=== PATIENT | female | born 1950 | race Caucasian/White ===

== ENCOUNTER 2018-03-26 14:54 | Inpatient (IN) ==
[2018-03-26] MEDS ORDERED: Gadobutrol PF 2 MMOL/2 ML Vial (for RAD) IV.SIG ONE (14:55)
[2018-03-26] MEDS ORDERED: Sod Chloride 0.9% Inj 1,000 ML IV.SIG ONE ×2 (15:07→16:48)
[2018-03-26] MEDS ORDERED: MethylPREDNISolone Sod Succinate Inj 125 MG/2 ML Vial IV.PUSH ONE (15:08)
--- NOTE | 2018-03-26 15:10 | ED ---
HPI General Chief complaint: Weakness Stated complaint: Weakness Complaint Time Seen by Provider: 03/26/18 14:55 Source: patient, EMS, RN notes reviewed and old records reviewed Mode of arrival: EMS Limitations: no limitations History of Present Illness HPI narrative: 67-year-old female presents to the emergency department via EMS for evaluation of generalized weakness. Patient has history of multiple sclerosis, hypertension, depression. Her neurologist is Dr. Motley. Patient states that she has been unable to get out of her chair that she has been sitting in for 3 days. She comes in via EMS covered in feces. The patient denies any headache. No fevers or chills. No chest pain or shortness of breath. No abdominal pain. No nausea, vomiting, diarrhea. She denies any falls or head injury. No other symptoms or complaints. Moderate severity. Onset (ago): day(s) (3) Radiation: non-radiation Severity: moderate Relieving factors: none Exacerbating factors: none Associated symptoms: Reports denies other symptoms Related Data Home Medications Medication Instructions Recorded Confirmed atorvastatin 20 mg PO DAILY 03/26/18 03/26/18 bupropion HCl 150 mg PO QAM 03/26/18 03/26/18 interferon beta-1a [Avonex] 30 mcg IM QWEEK 03/26/18 03/26/18 lisinopril 10 mg PO DAILY 03/26/18 03/26/18 temazepam 15 mg PO HS PRN 03/26/18 03/26/18 Allergies Allergy/AdvReac Type Severity Reaction Status Date / Time erythromycin base Allergy Severe RASH Unverified 01/13/17 15:26 NICKEL Allergy Mild RASH Uncoded 12/07/07 11:40 Review of Systems ROS: all other systems reviewed are negative PMFSH Medical History Medical History History of hysterectomy (Acute) Multiple sclerosis (Acute) Social History Social History Substance History: No History of Abuse Smoking Status: Current every day smoker Tobacco Type: Cigarettes How Often Do You Have a Drink Containing Alcohol: Never Recent Travel in [place] within the Last 8 Weeks: No Recent Out of Country Travel within the Last 8 Weeks: No Exam Narrative Exam Narrative: GENERAL: Well-nourished, well-developed female patient, afebrile. Patient is covered in feces upon arrival. SKIN: Focused skin assessment warm/dry. HEAD: Normocephalic. Atraumatic. EYES: No scleral icterus. No injection or drainage. NECK: Supple, trachea midline. No JVD or lymphadenopathy. CARDIOVASCULAR: Regular rate and rhythm without murmurs, gallops, or rubs. Bilateral radial and pedal pulses are 2+ RESPIRATORY: Breath sounds equal bilaterally. No accessory muscle use. Lung sounds are clear to auscultation GASTROINTESTINAL: Abdomen soft, non-tender, nondistended. MUSCULOSKELETAL: No cyanosis, or edema. Bilateral upper extremity strength is 5 /5. Bilateral lower extremity strength is 4/5. All extremities are neurovascularly intact. BACK: Nontender without obvious deformity. No CVA tenderness. Course Initial Documented Vital Signs Pulse Rate 121 H 03/26/18 15:22 Respiratory Rate 22 03/26/18 15:22 Blood Pressure 155/86 H 03/26/18 15:22 Pulse Oximetry 97 03/26/18 15:22 Last Documented Vital Signs Temperature 98.7 F 03/26/18 17:13 Pulse Rate 121 H 03/26/18 15:22 Respiratory Rate 22 03/26/18 15:22 Blood Pressure 155/86 H 03/26/18 15:22 Pulse Oximetry 97 03/26/18 15:22 Medical Decision Making MDM Narrative Medical decision making narrative: 67-year-old female presents to the emergency department via EMS for evaluation of generalized weakness. She has been unable to get out of her chair for 3 days and has been urinating and defecating on herself. Patient has history of MS, neurologist is Dr. Motley. IV access is obtained. CBC, CMP, magnesium, CK, troponin, TSH, PTT, PT/INR, UA are ordered and pending. Patient is given normal saline 1 L IV bolus, Solumedrol 125 mg IV. EKG shows SR, HR 98, no acute ST changes. CBC shows hemoconcentration with Hgb of 16.7, HCT of 48.5. CMP shows no acute abnormality. Magnesium is 2.1. CK is 52. Troponin is less than 0.02. TSH is 1.040. PTT is 27.9. Pt/INR is 11.4 /1.1. UA shows 80 or greater ketones, positive nitrate, small leukocyte esterase, 17 WBC, few WBC clumps, many bacteria. Patient is given second liter normal saline IV bolus. Blood cultures x2 are pending. Patient is given Rocephin 1 g IV. I spoke to Dr. Soriano, neurologist sanitation superintendent. He states that this time he would treat UTI with antibiotics. He recommends MRI of the brain with and without contrast and a consult placed to him. Hospitalist is paged for admission. Dr. Caruso accepted admission. Medical Screen Exam Complete: Yes Emergency Medical Condition: Yes Differential Diagnosis Differential Diagnosis: MS exacerbation vs. metabolic derangement vs. dehydration vs. rhabdomyolosis Medical Records Medical records reviewed: Yes I reviewed the patient's medical records. Lab Data Result diagrams: 03/26/18 15:38 03/26/18 15:38 Lab Results 03/26/18 03/26/18 03/26/18 Range/Units 15:38 15:38 15:38 WBC 9.6 (4.0-11.0) th/mm3 RBC 4.96 (4.00-5.30) mil/mm3 Hgb 16.7 H (11.6-15.3) gm/dL Hct 48.5 H (35.0-46.0) % MCV 97.7 (80.0-100.0) fL MCH 33.6 (27.0-34.0) pg MCHC 34.4 (32.0-36.0) % RDW 13.5 (11.6-17.2) % Plt Count 237 (150-450) th/mm3 MPV 9.7 (7.0-11.0) fL Neut % (Auto) 76.4 H (16.0-70.0) % Lymph % (Auto) 14.8 (9.0-44.0) % [place] % (Auto) 6.8 (0.0-8.0) % Eos % (Auto) 1.3 (0.0-4.0) % Baso % (Auto) 0.7 (0.0-2.0) % Neut # (Auto) 7.4 (1.8-7.7) th/mm3 Lymph # (Auto) 1.4 (1.0-4.8) th/mm3 [place] # (Auto) 0.7 (0.0-0.9) th/mm3 Eos # (Auto) 0.1 (0.0-0.4) th/mm3 Baso # (Auto) 0.1 (0.0-0.2) th/mm3 WBC Differential . Differential Comment Auto diff final PT 11.4 (9.8-11.6) sec INR 1.1 Ratio APTT 27.9 (24.3-30.1) sec Sodium 139 (136-145) meq/L Potassium 3.6 (3.5-5.1) meq/L Chloride 103 (98-107) meq/L Carbon Dioxide 25.9 (21.0-32.0) meq/L Anion Gap 10 (5-15) meq/L BUN 16 (7-18) mg/dL Creatinine 0.80 (0.50-1.00) mg/dL Estimated GFR 72 L (>89) mL/min Random Glucose 93 (74-106) mg/dL Calcium 9.2 (8.5-10.1) mg/dL Magnesium 2.1 (1.5-2.5) mg/dL Total Bilirubin 0.5 (0.2-1.0) mg/dL AST 13 L (15-37) U/L ALT 17 (10-53) U/L Alkaline Phosphatase 65 (45-117) U/L Total Creatine Kinase 52 (26-192) U/L Troponin I Less than 0.02 L (0.02-0.05) ng/mL Total Protein 7.4 (6.4-8.2) g/dL Albumin 3.5 (3.4-5.0) g/dL TSH 1.040 (0.358-3.740) uIU/mL Urine Color (Yellw/Straw) Urine Clarity (Clear) Urine pH (5.0-8.5) Ur Specific [place] (1.002-1.035) Urine Protein (Neg-Trace) mg/dL Urine Glucose (UA) (Negative) mg/dL Urine Ketones (Negative) mg/dL Urine Occult Blood (Negative) Urine Nitrate (Negative) Urine Bilirubin (Negative) Urine Ictotest (Negative) Urine Urobilinogen (Less than 2) mg/dL Ur Leukocyte Esterase (Negative) Urine RBC (0-3) /hpf Urine WBC (0-5) /hpf Urine WBC Clumps (None) Urine Bacteria (None) /hpf Urine Mucus (Occasional) /lpf Micro UA Comment Ur Microscopic Review Urine Culture Comments 03/26/18 Range/Units 15:50 WBC (4.0-11.0) th/mm3 RBC (4.00-5.30) mil/mm3 Hgb (11.6-15.3) gm/dL Hct (35.0-46.0) % MCV (80.0-100.0) fL MCH (27.0-34.0) pg MCHC (32.0-36.0) % RDW (11.6-17.2) % Plt Count (150-450) th/mm3 MPV (7.0-11.0) fL Neut % (Auto) (16.0-70.0) % Lymph % (Auto) (9.0-44.0) % [place] % (Auto) (0.0-8.0) % Eos % (Auto) (0.0-4.0) % Baso % (Auto) (0.0-2.0) % Neut # (Auto) (1.8-7.7) th/mm3 Lymph # (Auto) (1.0-4.8) th/mm3 [place] # (Auto) (0.0-0.9) th/mm3 Eos # (Auto) (0.0-0.4) th/mm3 Baso # (Auto) (0.0-0.2) th/mm3 WBC Differential Differential Comment PT (9.8-11.6) sec INR Ratio APTT (24.3-30.1) sec Sodium (136-145) meq/L Potassium (3.5-5.1) meq/L Chloride (98-107) meq/L Carbon Dioxide (21.0-32.0) meq/L Anion Gap (5-15) meq/L BUN (7-18) mg/dL Creatinine (0.50-1.00) mg/dL Estimated GFR (>89) mL/min Random Glucose (74-106) mg/dL Calcium (8.5-10.1) mg/dL Magnesium (1.5-2.5) mg/dL Total Bilirubin (0.2-1.0) mg/dL AST (15-37) U/L ALT (10-53) U/L Alkaline Phosphatase (45-117) U/L Total Creatine Kinase (26-192) U/L Troponin I (0.02-0.05) ng/mL Total Protein (6.4-8.2) g/dL Albumin (3.4-5.0) g/dL TSH (0.358-3.740) uIU/mL Urine Color Yellow (Yellw/Straw) Urine Clarity Hazy H (Clear) Urine pH 5.0 (5.0-8.5) Ur Specific [place] 1.024 (1.002-1.035) Urine Protein Negative (Neg-Trace) mg/dL Urine Glucose (UA) Negative (Negative) mg/dL Urine Ketones 80 or greater H (Negative) mg/dL Urine Occult Blood Small H (Negative) Urine Nitrate Positive H (Negative) Urine Bilirubin Negative (Negative) Urine Ictotest Negative (Negative) Urine Urobilinogen Less than 2 (Less than 2) mg/dL Ur Leukocyte Esterase Small H (Negative) Urine RBC 3 (0-3) /hpf Urine WBC 17 H (0-5) /hpf Urine WBC Clumps Few H (None) Urine Bacteria Many H (None) /hpf Urine Mucus Few H (Occasional) /lpf Micro UA Comment Cath-culture ind Ur Microscopic Review Not Reportable Urine Culture Comments Cath-cult indicated Discharge Plan Discharge Disposition Patient Disposition: 30 Still Patient Discharge Details Diagnosis: Generalized weakness, Acute UTI, Multiple sclerosis Physicians Team ED Provider: Joshua Bazzi ED Midlevel Provider: Lili Turner Primary Care Provider: Bismark Ronquillo V Other Providers: Richard Soriano Rxs /Orders / Referrals /Forms Prescriptions: No Action atorvastatin 20 mg Tablet 20 mg PO DAILY RF: 0 temazepam 15 mg Capsule 15 mg PO HS PRN (Reason: Insomnia) RF: 0 lisinopril 10 mg Tablet 10 mg PO DAILY RF: 0 bupropion HCl 150 mg Tablet Extended Release 24 Hr 150 mg PO QAM RF: 0 interferon beta-1a [Avonex] 30 mcg/0.5 mL Pen Injector Kit 30 mcg IM QWEEK RF: 0 Status ED Status: With Doctor
[2018-03-26 16:04] LABS: Baso # (Auto) 0.1 th/mm3 (0.0-0.2); Baso % (Auto) 0.7 % (0.0-2.0); Eos # (Auto) 0.1 th/mm3 (0.0-0.4); Eos % (Auto) 1.3 % (0.0-4.0); Hematocrit 48.5 % (35.0-46.0); Hemoglobin 16.7 gm/dL (11.6-15.3); Lymph # (Auto) 1.4 th/mm3 (1.0-4.8); Lymph % (Auto) 14.8 % (9.0-44.0); Mean Corpuscular HGB Conc 34.4 % (32.0-36.0); Mean Corpuscular Hemoglobin 33.6 pg (27.0-34.0); Mean Corpuscular Volume 97.7 fL (80.0-100.0); Mean Platelet Volume 9.7 fL (7.0-11.0); Mono # (Auto) 0.7 th/mm3 (0.0-0.9); Mono % (Auto) 6.8 % (0.0-8.0); Neut # (Auto) 7.4 th/mm3 (1.8-7.7); Neut % (Auto) 76.4 % (16.0-70.0); Platelet Count 237 th/mm3 (150-450); Red Blood Count 4.96 mil/mm3 (4.00-5.30); Red Cell Distribution Width 13.5 % (11.6-17.2); White Blood Count 9.6 th/mm3 (4.0-11.0)
[2018-03-26 16:22] LABS: Activated Partial Thrombo Time 27.9 sec (24.3-30.1); INR 1.1 Ratio; Prothrombin Time 11.4 sec (9.8-11.6)
[2018-03-26 16:23] LABS: Bacteria,Urine Many /hpf; Clarity,Urine Hazy (Clear); Color,Urine Yellow (Yellw/Straw); Glucose,Urine (UA) Negative (Negative); Leukocyte Esterase,Urine Small (Negative); Mucus,Urine Few /lpf (Occasional); Nitrite,Urine Positive (Negative); Specific Gravity,Urine 1.024 (1.002-1.035)
[2018-03-26 16:33] LABS: Bilirubin,Urine Negative (Negative); Ictotest,Urine Negative (Negative)
[2018-03-26 16:37] LABS: Alanine Aminotransferase 17 U/L (10-53); Albumin 3.5 g/dL (3.4-5.0); Anion Gap 10 meq/L (5-15); Aspartate Aminotransferase 13 U/L (15-37); Blood Urea Nitrogen 16 mg/dL (7-18); Calcium 9.2 mg/dL (8.5-10.1); Carbon Dioxide 25.9 meq/L (21.0-32.0); Chloride 103 meq/L (98-107); Glomerular Filtration Rate 72 mL/min (>89); Glucose,Random 93 mg/dL (74-106); Magnesium 2.1 mg/dL (1.5-2.5); Potassium 3.6 meq/L (3.5-5.1); Sodium 139 meq/L (136-145)
[2018-03-26 16:47] LABS: Alkaline Phosphatase 65 U/L (45-117); Total Protein 7.4 g/dL (6.4-8.2)
[2018-03-26 17:28] LABS: Creatine Kinase 52 U/L (26-192)
--- NOTE | 2018-03-26 18:38 | MR ---
EXAM DATE: 03/26/2018 6:25 PM EDT AGE/SEX: 67 years / Female INDICATIONS: . Generalized weakness. CLINICAL DATA: This is the patient's initial encounter. Patient reports that signs and symptoms have been present for 1 day and indicates a pain score of 0/10. MEDICAL/SURGICAL HISTORY: Multiple sclerosis. Hysterectomy. COMPARISON: [facility] [place] BRAIN W & W/O CONTRAST, 05/26/2012. . TECHNIQUE: Multiplanar, multisequence examination of the brain was performed without and with 9 ml Ga davist (gadobutrol) contrast as a single exam dose. FINDINGS: Cerebrum: Ventricles remain prominent and out of proportion to the degree of cortical atrophy. Sever e periventricular areas of increased T2 FLAIR signal intensity, some of which are oriented 90 degrees to the axis of the ventricles could represent the patient's reported history of multiple sclerosis. Findings are stable from the 2012 exam, however. No areas of abnormal enhancement to suggest an acute demyelinating process. No evidence of midline shift, mass lesion, hemorrhage or acute infarction. No extraaxial fluid collections are seen. The pituitary gland and suprasellar cistern are normal in configuration. White Matter: Severe, but stable periventricular white matter changes as above. Posterior Fossa: The cerebellum and brainstem are intact. The 4th ventricle is midline. The cerebel lopontine angle is unremarkable. The cerebellar tonsils are normal in position. Diffusion Imaging: No focal areas of restricted diffusion are seen. No evidence of acute infarction . Extracranial: The visualized portions of the orbits and paranasal sinuses are unremarkable. Post Contrast: No abnormal areas of parenchymal or dural enhancement. No evidence of blood-brain ba rrier breakdown. CONCLUSION: 1. 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 Findings are st able from the 2012 exam, however. 2. No active demyelinating plaque. 3. Stable prominence of the ventricular system. Again, this could represent some central atrophy alt juan, in the appropriate clinical setting, findings could represent normal pressure hydrocephalus. Electronically signed by: Tolu Slade MD 03/26/2018 6:37 PM EDT
[2018-03-26] MEDS ORDERED: Bisacodyl 10 MG Supp RECTAL PRN (18:59)
[2018-03-26] MEDS ORDERED: Acetaminophen 325 MG Tablet PO PRN (18:59)
--- NOTE | 2018-03-26 19:22 | P.HPIM ---
History of Present Illness Primary Care Physician: Bismark Ronquillo MD Chief Complaint: Feeling weak. History of Present Illness: 67-year-old white female with a history of multiple sclerosis reports that she was essentially chair and bedbound for the past 3 days. She states during the past 3 days she has had increased weakness to the point where she was unable to get up from her chair to ambulate. She was found by her home health care nurse today sitting in her feces and sent to the emergency room for further evaluation. She states that she was stubborn and should have called for help sooner. She reports her baseline is able to be able to walk with a walker and can be independent in transfers from bed and chair. She reports her left lower leg seems to be weaker than the right lower leg during the past 3 days. She denies any headaches, visual changes nor any difficulty with speech or swallow. She has not had any chest pain or shortness of breath. She has not had any dysuria or frequency or urgency. She has not had any fevers or chills. She lives alone and due to the fact she was chair and bedbound, she has not been eating and drinking during the past 3 days. Review of Systems All other systems reviewed negative except as stated in HPI PMFSH - History History Provided By: Patient, Private Wealth Advisor / EMT - Medical History Medical History: Medical History (Last Updated 03/26/18 @ 19:10 by Graciela Caruso MD) Depression HTN (hypertension) Multiple sclerosis - Surgical History Surgical History: Surgical History (Last Reviewed 03/26/18 @ 19:09 by Graciela Caruso MD) History of hysterectomy - Family History Family History: Family History (Last Updated 03/26/18 @ 19:09 by Graciela Caruso MD) Mother Family history of hypertension - Social History I have reviewed the patient's Social History: Yes - Tobacco History Tobacco Use In Past 30 Days: Yes Smoking Status: Current every day smoker Tobacco Type: Cigarettes - Alcohol History How Often Do You Have a Drink Containing Alcohol: Never - Substance Use History Substance History: No History of Abuse - Travel History Recent Travel in the [facility] Within the Last 8 Weeks: No Recent Travel Out of the Country Within the Last 8 Weeks: No - Immunization History Tetanus Immunization: <5 Years Medications and Allergies Active Medications: Active Medications Sodium Chloride (Ns Flush) 2 ml IV.FLUSH PRN PRN PRN Reason: FLUSH AFTER USING IV ACCESS Allergies Allergy/AdvReac Type Severity Reaction Status Date / Time erythromycin base Allergy Severe RASH Unverified 01/13/17 15:26 NICKEL Allergy Mild RASH Uncoded 12/07/07 11:40 Home Medications Medication Instructions Recorded Confirmed Type atorvastatin 20 mg PO DAILY 03/26/18 03/26/18 History bupropion HCl 150 mg PO QAM 03/26/18 03/26/18 History interferon beta-1a [Avonex] 30 mcg IM QWEEK 03/26/18 03/26/18 History lisinopril 10 mg PO DAILY 03/26/18 03/26/18 History temazepam 15 mg PO HS PRN 03/26/18 03/26/18 History Exam Vital signs: Vital Signs 03/26/18 15:22 03/26/18 17:13 Temperature 98.7 F Pulse Rate 119 H Respiratory Rate 22 Blood Pressure 155/86 H Pulse Oximetry 97 Intake & Output 03/26/18 03/26/18 03/27/18 06:59 18:59 06:59 Intake Total 1000 / 1000 Balance 1000 / 1000 Weight 90.718 kg Intake: IV 1000 / 1000 NS Inj 1,000 ML @ Wide Open IV. 1000 / 1000 SIG BOLUS ONE Rx#:[id number] Narrative: GENERAL: Well-nourished well-developed white female no acute distress SKIN: Warm and dry. HEAD: Atraumatic. Normocephalic. EYES: Pupils equal and round. No scleral icterus. No injection or drainage. ENT: No nasal bleeding or discharge. Mucous membranes pink and moist. NECK: Trachea midline. No JVD. CARDIOVASCULAR: Regular rate and rhythm. RESPIRATORY: No accessory muscle use. Clear to auscultation. Breath sounds equal bilaterally. GASTROINTESTINAL: Abdomen soft, non-tender, nondistended. Hepatic and splenic margins not palpable. Normoactive bowel sounds MUSCULOSKELETAL: Extremities without clubbing, cyanosis, or edema. NEUROLOGICAL: Awake and alert to person place time situation. Cranial nerves intact. Bilateral upper extremity strength 5 out of 5, bilateral lower extremity 4 out of 5 motor strength. Normal speech. PSYCHIATRIC: Appropriate mood and affect; insight and judgment normal. Results - Labs CBC & Chem 7: 03/26/18 15:38 03/26/18 15:38 Labs: Short CBC 03/26/18 Range/Units 15:38 WBC 9.6 (4.0-11.0) th/mm3 Hgb 16.7 H (11.6-15.3) gm/dL Hct 48.5 H (35.0-46.0) % Plt Count 237 (150-450) th/mm3 BMP 03/26/18 15:38 Sodium 139 Potassium 3.6 Chloride 103 Carbon Dioxide 25.9 BUN 16 Creatinine 0.80 Calcium 9.2 Cardiac Enzymes 03/26/18 Range/Units 15:38 Total Creatine Kinase 52 (26-192) U/L Troponin I Less than 0.02 L (0.02-0.05) ng/mL Liver Function 03/26/18 Range/Units 15:38 Total Bilirubin 0.5 (0.2-1.0) mg/dL AST 13 L (15-37) U/L ALT 17 (10-53) U/L Alkaline Phosphatase 65 (45-117) U/L Albumin 3.5 (3.4-5.0) g/dL Urine 03/26/18 Range/Units 15:50 Urine Color Yellow (Yellw/Straw) Urine Clarity Hazy H (Clear) Urine pH 5.0 (5.0-8.5) Ur Specific [place] 1.024 (1.002-1.035) Urine Protein Negative (Neg-Trace) mg/dL Urine Glucose (UA) Negative (Negative) mg/dL - Imaging Impressions Head MRI 03/26/18 17:26 CONCLUSION: 1. 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 Findings are stable from the 2012 exam, however. 2. No active demyelinating plaque. 3. Stable prominence of the ventricular system. Again, this could represent some central atrophy although, in the appropriate clinical setting, findings could represent normal pressure hydrocephalus. Caprini VTE Risk Assessment Caprini VTE Risk Assessment: Moderate/High Risk (score >= 2) Caprini Risk Assessment Model: Point Value = 1 Point Value = 2 Point Value = 3 Point Value = 5 Age 41-60 Minor surgery BMI > 25 kg/m2 Swollen legs Varicose veins or History of unexplained or recurrent spontaneous Oral contraceptives or hormone replacement Sepsis (< 1 month) Serious lung disease, including pneumonia (< 1 month) Abnormal pulmonary function Acute myocardial infarction Congestive heart failure (< 1 month) History of inflammatory bowel disease Medical patient at bed rest Age 61-74 Arthroscopic surgery Major open surgery (> 45 min) Laparoscopic surgery (> 45 min) Malignancy Confined to bed (> 72 hours) Immobilizing plaster cast Central venous access Age >= 75 History of VTE Family history of VTE Factor V Leiden Prothrombin [id number] Lupus anticoagulant Anticardiolipin antibodies Elevated serum homocysteine Heparin-induced thrombocytopenia Other congenital or acquired thrombophilia Stroke (< 1 month) Elective arthroplasty Hip, pelvis, or leg fracture Acute spinal cord injury (< 1 month) Prophylaxis Regimen: Total Risk Factor Score Risk Level Prophylaxis Regimen 0-1 Low Early ambulation 2 Moderate Order ONE of the following: *Sequential Compression Device (SCD) *Heparin 5000 units SQ BID 3-4 Higher Order ONE of the following medications: *Heparin 5000 units SQ TID *Enoxaparin/Lovenox 40 mg SQ daily (WT < 150 kg, CrCl > 30 mL/min) *Enoxaparin/Lovenox 30 mg SQ daily (WT < 150 kg, CrCl > 10-29 mL/min) *Enoxaparin/Lovenox 30 mg SQ BID (WT < 150 kg, CrCl > 30 mL/min) AND/OR *Sequential Compression Device (SCD) 5 or more Highest Order ONE of the following medications: *Heparin 5000 units SQ TID (Preferred with Epidurals) *Enoxaparin/Lovenox 40 mg SQ daily (WT < 150 kg, CrCl > 30 mL/min) *Enoxaparin/Lovenox 30 mg SQ daily (WT < 150 kg, CrCl > 10-29 mL/min) *Enoxaparin/Lovenox 30 mg SQ BID (WT < 150 kg, CrCl > 30 mL/min) AND *Sequential Compression Device (SCD) Assessment and Plan - Plan 67-year-old white female with a history of multiple sclerosis presents emergency room with 3-day history of generalized weakness leading to difficulty with transfers and ambulation for the past 3 days 1. Lower extremity weakness with 3-day history of difficulty with transfers and ambulating -this may be due to her urinary tract infection however will consult with neurology for further recommendations. Patient states that this does not feel like her previous multiple sclerosis exacerbations MRI of the brain ordered per neurologist recommendations and results reviewed. 2. Hypertensionresume home lisinopril. 3. Depressionresume home bupropion 4. Urinary tract infectionstart Rocephin. Follow-up with final urine cultures. 5. DVT prophylaxisLovenox.
[2018-03-26] MEDS: Enoxaparin Inj 40 MG/0.4 ML Syringe SQ SCH (21:49)
[2018-03-27 05:08] LABS: Baso % (Auto) 0.3 % (0.0-2.0); Hematocrit 41.1 % (35.0-46.0); Hemoglobin 13.9 gm/dL (11.6-15.3); Lymph # (Auto) 0.5 th/mm3 (1.0-4.8); Lymph % (Auto) 7.4 % (9.0-44.0); Mean Corpuscular HGB Conc 33.8 % (32.0-36.0); Mean Corpuscular Hemoglobin 33.1 pg (27.0-34.0); Mean Corpuscular Volume 97.9 fL (80.0-100.0); Mean Platelet Volume 10.3 fL (7.0-11.0); Mono # (Auto) 0.2 th/mm3 (0.0-0.9); Mono % (Auto) 2.1 % (0.0-8.0); Neut # (Auto) 6.5 th/mm3 (1.8-7.7); Neut % (Auto) 90.2 % (16.0-70.0); Platelet Count 206 th/mm3 (150-450); Red Cell Distribution Width 13.3 % (11.6-17.2); White Blood Count 7.2 th/mm3 (4.0-11.0)
[2018-03-27 05:39] LABS: Calcium 8.3 mg/dL (8.5-10.1); Carbon Dioxide 23.5 meq/L (21.0-32.0); Potassium 3.4 meq/L (3.5-5.1)
[2018-03-27 09:03] LABS: Phosphorus 2.1 mg/dL (2.5-4.9)
--- NOTE | 2018-03-27 09:04 | P.PN ---
Subjective Interval history: Follow up on patient with MS, weakness, UTI. Patient seen and examined. She says she feels okay. She denies any fever or chills. She denies any chest pain or dyspnea. She denies any N/V or abdominal pain. She is asking if she can eat breakfast. She performs her own ADLs at the house. She has friends that bring her food to microwave. Physical Exam Vital signs: Vital Signs 03/26/18 15:22 03/26/18 17:13 03/26/18 19:00 Temperature 98.7 F Pulse Rate 119 H 95 H Respiratory Rate 22 16 Blood Pressure 155/86 H 142/82 H Pulse Oximetry 97 97 03/27/18 00:00 03/27/18 03:46 03/27/18 08:00 Temperature 98.8 F 98.8 F 98.5 F Pulse Rate 101 H 100 H 96 H Respiratory Rate 14 14 16 Blood Pressure 129/71 119/63 132/69 Pulse Oximetry 94 L 94 L 93 L Intake & Output 03/26/18 03/27/18 03/27/18 18:59 06:59 18:59 Intake Total 1000 / 1000 1100 / 1100 Balance 1000 / 1000 1100 / 1100 Weight 90.718 kg Intake: IV 1000 / 1000 1100 / 1100 NS Inj 1,000 ML @ Wide Open IV. 1000 / 1000 1000 / 1000 SIG BOLUS ONE Rx#:[id number] Rocephin Inj 1,000 MG In NS Inj 100 / 100 100 ML @ 200 mls/hr IV.SIG ONCE ONE Rx#:[id number] Other: # Voids 1 Narrative: GENERAL: Well-nourished well-developed white female no acute distress. Awake and alert. SKIN: Warm and dry. HEENT: Atraumatic. Normocephalic. Pupils equal and round. No scleral icterus. No injection or drainage. Lazy left eye. No nasal bleeding or discharge. Mucous membranes pink and moist. NECK: Trachea midline. No JVD. CARDIOVASCULAR: Regular rate and rhythm. RESPIRATORY: No accessory muscle use. Clear to auscultation. Breath sounds equal bilaterally. GASTROINTESTINAL: Abdomen soft, non-tender, nondistended. Normoactive bowel sounds. MUSCULOSKELETAL: Extremities without clubbing, cyanosis, or edema. Bilateral calves supple but tender to palpation. ?Right calf slightly larger than left. NEUROLOGICAL: Awake and alert. Cranial nerves II-XII intact. Able to move all extremities spontaneously. Normal speech. PSYCHIATRIC: Appropriate mood and affect; insight and judgment normal. Results - Labs CBC & Chem 7: 03/27/18 03:58 03/27/18 03:58 Laboratory Results - last 24 hr 03/26/18 03/26/18 03/26/18 15:38 15:38 15:38 WBC 9.6 RBC 4.96 Hgb 16.7 H Hct 48.5 H MCV 97.7 MCH 33.6 MCHC 34.4 RDW 13.5 Plt Count 237 MPV 9.7 Neut % (Auto) 76.4 H Lymph % (Auto) 14.8 [place] % (Auto) 6.8 Eos % (Auto) 1.3 Baso % (Auto) 0.7 Neut # (Auto) 7.4 Lymph # (Auto) 1.4 [place] # (Auto) 0.7 Eos # (Auto) 0.1 Baso # (Auto) 0.1 WBC Differential . Differential Comment Auto diff final PT 11.4 INR 1.1 APTT 27.9 Sodium 139 Potassium 3.6 Chloride 103 Carbon Dioxide 25.9 Anion Gap 10 BUN 16 Creatinine 0.80 Estimated GFR 72 L Random Glucose 93 Calcium 9.2 Phosphorus Magnesium 2.1 Total Bilirubin 0.5 AST 13 L ALT 17 Alkaline Phosphatase 65 Total Creatine Kinase 52 Troponin I Less than 0.02 L Total Protein 7.4 Albumin 3.5 TSH 1.040 Urine Color Urine Clarity Urine pH Ur Specific [place] Urine Protein Urine Glucose (UA) Urine Ketones Urine Occult Blood Urine Nitrate Urine Bilirubin Urine Ictotest Urine Urobilinogen Ur Leukocyte Esterase Urine RBC Urine WBC Urine WBC Clumps Urine Bacteria Urine Mucus Micro UA Comment Ur Microscopic Review Urine Culture Comments 03/26/18 03/27/18 03/27/18 15:50 03:58 03:58 WBC 7.2 RBC 4.20 Hgb 13.9 D Hct 41.1 MCV 97.9 MCH 33.1 MCHC 33.8 RDW 13.3 Plt Count 206 MPV 10.3 Neut % (Auto) 90.2 H Lymph % (Auto) 7.4 L [place] % (Auto) 2.1 Eos % (Auto) 0.0 Baso % (Auto) 0.3 Neut # (Auto) 6.5 Lymph # (Auto) 0.5 L [place] # (Auto) 0.2 Eos # (Auto) 0.0 Baso # (Auto) 0.0 WBC Differential . Differential Comment Auto diff final PT INR APTT Sodium 142 Potassium 3.4 L Chloride 109 H Carbon Dioxide 23.5 Anion Gap 10 BUN 14 Creatinine 0.82 Estimated GFR 70 L Random Glucose 166 H Calcium 8.3 L D Phosphorus Magnesium Total Bilirubin AST ALT Alkaline Phosphatase Total Creatine Kinase Troponin I Total Protein Albumin TSH Urine Color Yellow Urine Clarity Hazy H Urine pH 5.0 Ur Specific [place] 1.024 Urine Protein Negative Urine Glucose (UA) Negative Urine Ketones 80 or greater H Urine Occult Blood Small H Urine Nitrate Positive H Urine Bilirubin Negative Urine Ictotest Negative Urine Urobilinogen Less than 2 Ur Leukocyte Esterase Small H Urine RBC 3 Urine WBC 17 H Urine WBC Clumps Few H Urine Bacteria Many H Urine Mucus Few H Micro UA Comment Cath-culture ind Ur Microscopic Review Not Reportable Urine Culture Comments Cath-cult indicated 03/27/18 03:58 WBC RBC Hgb Hct MCV MCH MCHC RDW Plt Count MPV Neut % (Auto) Lymph % (Auto) [place] % (Auto) Eos % (Auto) Baso % (Auto) Neut # (Auto) Lymph # (Auto) [place] # (Auto) Eos # (Auto) Baso # (Auto) WBC Differential Differential Comment PT INR APTT Sodium Potassium Chloride Carbon Dioxide Anion Gap BUN Creatinine Estimated GFR Random Glucose Calcium Phosphorus 2.1 L Magnesium Total Bilirubin AST ALT Alkaline Phosphatase Total Creatine Kinase Troponin I Total Protein Albumin TSH Urine Color Urine Clarity Urine pH Ur Specific [place] Urine Protein Urine Glucose (UA) Urine Ketones Urine Occult Blood Urine Nitrate Urine Bilirubin Urine Ictotest Urine Urobilinogen Ur Leukocyte Esterase Urine RBC Urine WBC Urine WBC Clumps Urine Bacteria Urine Mucus Micro UA Comment Ur Microscopic Review Urine Culture Comments - Imaging Impressions Head MRI 03/26/18 17:26 CONCLUSION: 1. 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 Findings are stable from the 2012 exam, however. 2. No active demyelinating plaque. 3. Stable prominence of the ventricular system. Again, this could represent some central atrophy although, in the appropriate clinical setting, findings could represent normal pressure hydrocephalus. Assessment and Plan - Plan 67-year-old white female with a history of multiple sclerosis presents emergency room with 3-day history of generalized weakness leading to difficulty with transfers and ambulation for the past 3 days Lower extremity weakness with 3-day history of difficulty with transfers and ambulating -this may be due to her urinary tract infection ?MS exacerbation MRI of the brain ordered per neurologist recommendations and results reviewed. BCX with no growth x 1 day -Neurology consulted, appreciate assistance -continue with PT/OT - recommending rehab, patient unable to stand. She lives alone. -CM consulted to assist with discharge planning -fall precautions Urinary tract infection started Rocephin, continue -Follow-up with final urine cultures. Hypertension -continue on home lisinopril. -continue to monitor BP Depression -continue on home bupropion Bilateral calf tenderness -obtain bilateral LE doppler studies, r/o DVT Hypokalemia K 3.4 -po repletion ordered -repeat BMP in am to monitor response Hyperglycemia BS 166 -obtain HgbA1c Hypophosphatemia phos 2.1 -po repletion ordered DVT prophylaxisLovenox. Code Status: Full Discussed Condition With: patient, nursing staff, Dr. Hewitt Discharge Planning: Not ready for discharge
[2018-03-27] MEDS: buPROPion 150 MG 12 HR Tablet PO SCH (10:19)
[2018-03-27] MEDS: Lisinopril 10 MG Tablet PO SCH (10:20)
[2018-03-27] MEDS ORDERED: Gadobutrol PF 10 MMOL/10 ML Vial (for RAD) IV.SIG ONE (13:28)
[2018-03-27 13:53] LABS: Hemoglobin A1c 5.5 % (4.3-6.0)
[2018-03-27] MEDS ORDERED: MethylPREDNISolone Sod Suc Inj 1,000 MG in Dextrose 5% in Water Inj 100 ML IV.SIG ONE ×2 (14:00)
--- NOTE | 2018-03-27 14:21 | MR ---
EXAM DATE: 03/27/2018 2:05 PM EDT AGE/SEX: 67 years / Female INDICATIONS: Mulitple sclerosis. CLINICAL DATA: This is the patient's initial encounter. Patient reports that signs and symptoms have been present for 2 days and indicates a pain score of 0/10. MEDICAL/SURGICAL HISTORY: Multiple sclerosis. Hysterectomy. COMPARISON: [facility] [place], MR THORACIC SPINE W & W/O CON, 03/27/2018. [facility] [place], MRI CERVICAL SPINE W & W/O CON TRAST, 05/26/2012. . TECHNIQUE: Multiplanar, multisequence MRI examination of the cervical spine was performed without an d with 9CC ml Gadavist (gadobutrol) contrast as a single exam dose. FINDINGS: There is grade I anterolisthesis of C3 in relation to C4. Cervical spondylosis is noted at C3-4, C4-5 , C6-7 and C7-T1. Anterior cervical fusion hardware is noted at C5-C7. There is focal right-sided T2 signal hyperintensity within the cervical cord at the C1-2 level and focal left-sided T2 signal hyper intensity within the cervical cord at the C4 level raising possibility of demyelinating plaques. No a bnormal enhancement is noted. Chronic compression deformities are noted involving T1, T2 and T3. C2-C3: The thecal sac has a normal configuration. There is no evidence of disc herniation or spina l canal stenosis. The neural foramina are patent bilaterally. C3-C4: Mild spinal stenosis and moderate bilateral foraminal narrowing is noted secondary to diffuse disc bulge, anterolisthesis, uncovertebral joint spurring and facet joint hypertrophy bilaterally. C4-C5: There is diffuse asymmetric disc bulge to the left which results in moderate left neuroforami nal narrowing but no spinal stenosis. The right neuroforamen is mild narrowing. Facet joint hypertrop hy is noted bilaterally. C5-C6: The thecal sac has a normal configuration. There is no evidence of disc herniation or spinal canal stenosis. The neural foramina are patent bilaterally. C6-C7: Mild diffuse disc osteophyte complex, uncovertebral joint spurring and facet joint hypertroph y are noted resulting in moderate bilateral foraminal narrowing. No spinal stenosis is noted. C7-T1: No epidural impressions seen. CONCLUSION: 1. Focal right-sided T2 signal hyperintensity within the cervical cord at the C1-2 level and focal l eft-sided T2 signal hyperintensity within the cervical cord at the C4 level raising possibility of de myelinating plaques. No abnormal enhancement is noted. 2. Mild spinal stenosis and moderate bilateral foraminal narrowing at C3-4. 3. Moderate bilateral foraminal narrowing at C6-7. 4. Moderate left neuroforaminal narrowing and mild right neuroforaminal narrowing at C4-5. 5. Grade I anterolisthesis of C3 in relation to C4. Electronically signed by: Luca Carlos MD 03/27/2018 2:19 PM EDT
--- NOTE | 2018-03-27 14:32 | MR ---
EXAM DATE: 03/27/2018 2:23 PM EDT AGE/SEX: 67 years / Female INDICATIONS: Mulitple sclerosis. CLINICAL DATA: This is the patient's initial encounter. Patient reports that signs and symptoms have been present for 1 day and indicates a pain score of 0/10. MEDICAL/SURGICAL HISTORY: Multiple sclerosis. Hysterectomy. COMPARISON: [facility] [place], MR CERVICAL SPINE W & W/O CON, 03/27/2018. [facility] [place], MRI CERVICAL SPINE W & W/O CON TRAST, 05/26/2012. . TECHNIQUE: Multiplanar, multisequence MRI of the thoracic spine was performed without and with 9cc m l Gadavist (gadobutrol) contrast as a single exam dose. FINDINGS: Vertebrae: Mild chronic compression deformities are noted involving T1, T2 and T3. No acute compress ion fracture is noted. Alignment: Normal. Cord: There is subtle T2 signal hyperintensity within the left side of the thoracic cord at the T1 l evel. This may represent demyelinating plaque. No abnormal enhancement is noted. Post Contrast: No abnormal areas of enhancement are seen in the cord, dural or paraspinal regions. T1-T2: The thecal sac has a normal diameter. No evidence of disc bulge or protrusion. T2-T3: The thecal sac has a normal diameter. No evidence of disc bulge or protrusion. T3-T4: The thecal sac has a normal diameter. No evidence of disc bulge or protrusion. T4-T5: The thecal sac has a normal diameter. No evidence of disc bulge or protrusion. T5-T6: The thecal sac has a normal diameter. No evidence of disc bulge or protrusion. T6-T7: The thecal sac has a normal diameter. No evidence of disc bulge or protrusion. T7-T8: The thecal sac has a normal diameter. No evidence of disc bulge or protrusion. T8-T9: The thecal sac has a normal diameter. No evidence of disc bulge or protrusion. T9-T10: The thecal sac has a normal diameter. No evidence of disc bulge or protrusion. T10-T11: Minimal diffuse asymmetric disc osteophyte complex to the left is noted resulting in slight effacement of the left lateral recess but no spinal stenosis and mild left neuroforaminal narrowing i s noted. The right neuroforamen is patent T11-T12: Facet joint hypertrophy is noted on the left resulting in effacement of the left posterior l ateral thecal sac. No spinal stenosis or neuroforaminal narrowing is noted. T12-L1: The thecal sac has a normal diameter. No evidence of disc bulge or protrusion. CONCLUSION: 1. Subtle T2 signal hyperintensity within the left side of the thoracic cord at the T1 level. This m ay represent demyelinating plaque. No abnormal enhancement is noted. 2. Mild left neuroforaminal narrowing and effacement of the left lateral recess at T10-11. 3. Left-sided facet joint hypertrophy resulting in effacement of the left posterior lateral thecal s ac at T11-12. 4. Mild chronic compression deformities involving T1, T2 and T3. Electronically signed by: Luca Carlos MD 03/27/2018 2:31 PM EDT
--- NOTE | 2018-03-27 14:46 | MB ---
cc: Richard Soriano MD DATE: 03/27/2018 HISTORY OF PRESENT ILLNESS: A 67-year-old right-handed woman with MS since she was 16 years old[address] She sees Dr. Motley and has been on Avonex, but has not seen him for several years. She feels like she is worse than she was 5 years ago. She sat in the chair last Thursday and then could not get out of the chair and was in the chair all week, evidently soiled. She says she usually walks with a walker, although not very far. REVIEW OF SYSTEMS: Denies any hypertension, diabetes, hypercholesterolemia, MS, CABG, cardiac arrhythmia, stent, angioplasty, A-Fib, Coumadin, renal, hepatic or pulmonary disease, thyroid disease, lupus, ulcer, cancer, seizure, stroke. SOCIAL HISTORY: She is a smoker in the past, quit. Occasionally has a drink. Lives by herself. FAMILY HISTORY: Negative for cancer, seizure, stroke. MEDICATIONS AT HOME: 1. Avonex 30 mcg every week. 2. Lisinopril. 3. Bupropion 150 in the morning. 4. Atorvastatin. 5. Temazepam. PHYSICAL EXAMINATION: VITAL SIGNS: She has been afebrile, 99, 155/86. There were no carotid bruits. HEART: Regular rhythm without a murmur. She has got a strabismus and appears to be a lazy eye on the left. She has no double vision. The left eye is everted, but the visual estrada are full, although in the left eye, left lateral inferior visual field appears to be a little bit diminished. Otherwise, the visual estrada are full bilaterally. There was no nystagmus. Her face was symmetric. Tongue was midline. Facial sensation was intact. There is no drift. She has normal strength at best testing in upper and lower extremities bilaterally, but she has increased reflexes throughout all 4 extremities and she has multiple and bilateral ankle clonus beats, a little bit worse in the right than the left. Toes are upgoing bilaterally. She has got increased tone in bilateral lower extremities. Pinprick was intact in the lower and upper extremities bilaterally. ADDENDUM LABORATORY DATA: Basic metabolic profile is normal. LFTs are normal. Phosphorus was 2.1, calcium 8.3, magnesium, normal. CPK, troponin, albumin B12, TSH all normal. UA shows ketones, 17 white cells, a few white blood cell clumps. Blood cultures are negative. Urine culture is pending. Coags are normal. CBC is normal. MRI of the brain does show consistent with MS, but nothing enhancing. 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 She should followup with Dr. Motley, she has not seen him in several years. She should followup with him after discharge. We will check some additional blood work and will give her a gram of Solu-Medrol for 3 days. Treat her urinary tract infection, which is being done with ceftriaxone. Have physical therapy ambulator her. Check a standing blood pressure. She has got a lot of spasticity in her bilateral lower extremities. We will get a rehab consult on her and I am not sure if this is so much of an multiple sclerosis exacerbation as the urinary tract infection, it is unclear. Also, I wonder if she has just been going downhill. She does not walk very far in the house and that albeit with her walker, so this may be more of a slowly progressive problem that just came to a head here when she could get out of her chair for the last week. We will also check an MRI of her cervical and thoracic spine. She probably has some spinal cord involvement. Certainly there is a lot of old multiple sclerosis in the brain. She can continue on her Avonex for now. MD RUSLAN Huerta/leobardo , 12:34 PM , 12:41 PM
[2018-03-27] MEDS: Famotidine 20 MG Tablet PO SCH ×2 (18:00→20:58)
[2018-03-27] MEDS: Potassium Phos/Sodium Phos 250 MG Tablet PO SCH ×2 (18:01→19:33)
[2018-03-27] MEDS: Sod Chloride 0.9% Inj 1,000 ML IV.CONT SCH (18:10)
[2018-03-27] MEDS: Enoxaparin Inj 40 MG/0.4 ML Syringe SQ SCH (20:58)
--- NOTE | 2018-03-28 00:37 | ECG ---
Date Performed: 03/26/2018 Time Performed: 16:17:09 PTAGE: 67 years EKG: Sinus rhythm NORMAL ECG INTERPRETATION BASED ON A DEFAULT AGE OF 41 YEARS PREVIOUS TRACING : 05/26/2012 19.04 DOCTOR: Reid Huff Interpretating Date/Time 03/28/2018 00:35:14
[2018-03-28] MEDS: Sod Chloride 0.9% Inj 1,000 ML IV.CONT SCH (03:57)
--- NOTE | 2018-03-28 08:21 | P.DS ---
Date of admission: 03/27/18 14:35 Primary care physician: Bismark Ronquillo MD Attending physician on discharge: Brittany Kash Anticipated date of discharge: 03/28/18 Brief History from admission: 67-year-old white female with a history of multiple sclerosis reports that she was essentially chair and bedbound for the past 3 days. She states during the past 3 days she has had increased weakness to the point where she was unable to get up from her chair to ambulate. She was found by her home health care nurse today sitting in her feces and sent to the emergency room for further evaluation. She states that she was stubborn and should have called for help sooner. She reports her baseline is able to be able to walk with a walker and can be independent in transfers from bed and chair. She reports her left lower leg seems to be weaker than the right lower leg during the past 3 days. She denies any headaches, visual changes nor any difficulty with speech or swallow. She has not had any chest pain or shortness of breath. She has not had any dysuria or frequency or urgency. She has not had any fevers or chills. She lives alone and due to the fact she was chair and bedbound, she has not been eating and drinking during the past 3 days. Patient update on day of discharge: Follow-up on patient with suspected MS exacerbation. Patient seen and examined. Patient states she feels a little better today. She denies any fever or chills. She denies any nausea, vomiting or abdominal pain. She denies any chest pain or shortness of breath. She is eager to be transferred to [facility] for inpatient rehabilitation. Patient did have some complaints of tenderness to palpation of both calves yesterday. Blood counts were noted to be supple on exam. Doppler ultrasounds were ordered to rule out DVT which patient refused. DS: Diagnosis - Discharge Diagnosis (1) Multiple sclerosis exacerbation Status: Acute (2) Generalized weakness Status: Acute (3) Acute UTI Status: Acute (4) Multiple sclerosis Status: Acute (5) Hypophosphatemia Status: Acute DS: Summary Hospital Course: Patient with a history of MS admitted with 3-day history of generalized weakness and immobility. MRI of the head revealed severe periventricular white matter changes which are oriented 90 degrees to the axis of the ventricular system characteristic of Moy's fingers of MS. There was no evidence of active demyelinating plaque. Patient was found to have urinary tract infection and was started on IV Rocephin. She was seen in consultation by neurology for suspected MS exacerbation. MRI of the cervical thoracic spine was obtained which revealed focal right sided T2 signal hyperintensity within the cervical cord at C1 to and focal left-sided T2 signal hyperintensity within the cervical cord at the C4 raising possibility of demyelinating plaques, mild spinal stenosis and moderate bilateral foraminal narrowing at C3-4, moderate bilateral renal narrowing at C6-7, moderate left neuroforaminal narrowing and mild right neuroforaminal narrowing at C4-5, subtle T2 signal hyperintensity within the left side of the thoracic cord at the T1 level possibly representing demyelinating plaque, mild left neural foraminal narrowing and effacement of the left lateral recess at T10-11, left-sided facet joint or hyper trophy resulting in effacement of the left posterior lateral thecal sac at T11-12 and mild chronic compression deformities at T1-T2 and T3. She was started on IV steroid treatment. She was found to have low phosphorus level and was started on oral phosphorus for repletion. Patient was seen in consultation by PT who recommended rehab. Patient was evaluated and accepted by [facility] for comprehensive inpatient rehabilitation. Urine culture grew gram-negative rods sensitivities still pending at the time of discharge. Patient follows with Dr. Motley as outpatient. - Time Spent with Patient Total time spent providing and/or coordinating discharge services: Greater than 30 minutes - Quality: VTE Deep Vein Thrombosis/Pulmonary Embolism Present on Admission: No Exam Vital signs: Vital Signs 03/27/18 11:29 03/27/18 15:29 03/27/18 20:00 Temperature 98.6 F 99.0 F 98.9 F Pulse Rate 99 H 102 H 89 Respiratory Rate 16 16 18 Blood Pressure 111/55 L 109/58 L 114/65 Pulse Oximetry 95 93 L 96 03/28/18 00:00 03/28/18 04:00 03/28/18 06:49 Temperature 98.5 F 98.5 F Pulse Rate 90 73 Respiratory Rate 18 18 20 Blood Pressure 106/62 119/79 Pulse Oximetry 94 L 97 Intake & Output 03/27/18 03/28/18 03/28/18 18:59 06:59 18:59 Intake Total 1056 / 1056 Balance 1056 / 1056 Weight 86.3 kg Intake: IV 816 / 816 NS Inj 1,000 ML @ 70 mls/hr IV. 600 / 600 CONT .[id number] [facility] Rx#:[id number] SoluMEDROL Inj 1,000 MG In D5W 116 / 116 Inj 100 ML @ 116 mls/hr IV.SIG ONCE ONE Rx#:[id number] Rocephin Inj 1,000 MG In NS Inj 100 / 100 100 ML @ 200 mls/hr IV.SIG Q24H [facility] Rx#:[id number] Oral 240 / 240 Other: # Voids 3 Date of Last Bowel Movement 03/27/18 03/25/18 # Incontinent Bowel Movements 1 Narrative: GENERAL: Well-nourished well-developed white female. Awake and alert. In no acute distress. SKIN: Warm and dry. HEENT: Atraumatic. Normocephalic. Pupils equal and round. No scleral icterus. No injection or drainage. Lazy left eye. No nasal bleeding or discharge. Mucous membranes pink and moist. NECK: Trachea midline. No JVD. CARDIOVASCULAR: Regular rate and rhythm. RESPIRATORY: No accessory muscle use. Clear to auscultation. Breath sounds equal bilaterally. GASTROINTESTINAL: Abdomen soft, non-tender, nondistended. Normoactive bowel sounds. MUSCULOSKELETAL: Extremities without clubbing, cyanosis, or edema. Bilateral calves supple. NEUROLOGICAL: Awake and alert. Cranial nerves II-XII intact. Able to move all extremities spontaneously. Normal speech. PSYCHIATRIC: Appropriate mood and affect; insight and judgment normal. Results Procedures completed during hospitalization: None Labs on day of discharge: Labs from last 24 hours 03/27/18 03/27/18 03/27/18 16:24 16:24 03:58 ESR 8 Hemoglobin A1c Phosphorus 2.1 L Ammonia 28 Vitamin B12 873 Urine Color Urine Clarity Urine pH Ur Specific [place] Urine Protein Urine Glucose (UA) Urine Ketones Urine Occult Blood Urine Nitrate Urine Bilirubin Urine Ictotest Urine Urobilinogen Ur Leukocyte Esterase Urine RBC Urine WBC Urine WBC Clumps Urine Bacteria Urine Mucus Micro UA Comment Urine Culture Comments 03/27/18 03/26/18 03:58 15:50 ESR Hemoglobin A1c 5.5 Phosphorus Ammonia Vitamin B12 Urine Color Yellow Urine Clarity Hazy H Urine pH 5.0 Ur Specific [place] 1.024 Urine Protein Negative Urine Glucose (UA) Negative Urine Ketones 80 or greater H Urine Occult Blood Small H Urine Nitrate Positive H Urine Bilirubin Negative Urine Ictotest Negative Urine Urobilinogen Less than 2 Ur Leukocyte Esterase Small H Urine RBC 3 Urine WBC 17 H Urine WBC Clumps Few H Urine Bacteria Many H Urine Mucus Few H Micro UA Comment Cath-culture ind Urine Culture Comments Cath-cult indicated Preliminary micro results at discharge 03/26/18 15:50 Urine Culture - Preliminary Clean Catch Urine gram negative rods 03/26/18 19:59 Aerobic Blood Culture - Preliminary Blood - Peripheral No growth in 1 day Anaerobic Blood Culture - Preliminary No growth in 1 day 03/26/18 20:04 Aerobic Blood Culture - Preliminary Blood - Peripheral No growth in 1 day Anaerobic Blood Culture - Preliminary No growth in 1 day - Impressions ITS Impressions Head MRI 03/26/18 17:26 CONCLUSION: 1. 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 Findings are stable from the 2012 exam, however. 2. No active demyelinating plaque. 3. Stable prominence of the ventricular system. Again, this could represent some central atrophy although, in the appropriate clinical setting, findings could represent normal pressure hydrocephalus. Cervical Spine MRI 03/27/18 12:38 CONCLUSION: 1. Focal right-sided T2 signal hyperintensity within the cervical cord at the C1-2 level and focal left-sided T2 signal hyperintensity within the cervical cord at the C4 level raising possibility of demyelinating plaques. No abnormal enhancement is noted. 2. Mild spinal stenosis and moderate bilateral foraminal narrowing at C3-4. 3. Moderate bilateral foraminal narrowing at C6-7. 4. Moderate left neuroforaminal narrowing and mild right neuroforaminal narrowing at C4-5. 5. Grade I anterolisthesis of C3 in relation to C4. Thoracic Spine MRI 03/27/18 12:38 CONCLUSION: 1. Subtle T2 signal hyperintensity within the left side of the thoracic cord at the T1 level. This may represent demyelinating plaque. No abnormal enhancement is noted. 2. Mild left neuroforaminal narrowing and effacement of the left lateral recess at T10-11. 3. Left-sided facet joint hypertrophy resulting in effacement of the left posterior lateral thecal sac at T11-12. 4. Mild chronic compression deformities involving T1, T2 and T3. Discharge Plan - Discharge Disposition Patient Disposition: [facility] Rehab Inpatient - Discharge Condition Condition: Stable - Discharge Order Discharge Orders: Discharge Order (Routine); Ordered 03/28/18 Ordered By: Leyla Bauman - Discharge Details Anticipated Discharge Date: 03/28/18 - Physicians Team Primary Care Provider: Bismark Ronquillo V Attending Provider: Brittany Hewitt Other Providers: Richard Carroll MD ; Kiel Bartlett MD
[2018-03-28 08:36] VITALS: BP 151/75; PULSE 77; RESP 18; TEMP 98.7; O2SAT 93
[2018-03-28] MEDS: Lisinopril 10 MG Tablet PO SCH (09:22)
[2018-03-28] MEDS: Potassium Phos/Sodium Phos 250 MG Tablet PO SCH (09:22)
[2018-03-28] MEDS: buPROPion 150 MG 12 HR Tablet PO SCH (09:23)
[2018-03-28] MEDS: Famotidine 20 MG Tablet PO SCH (09:23)
[2018-03-28] MEDS ORDERED: MethylPREDNISolone Sod Suc Inj 1,000 MG in Dextrose 5% in Water Inj 100 ML IV.SIG SCH ×2 (14:00)
== END 2018-03-28 11:05 ==
LOC: NEDA 14:54 → NEPC 14:54 → NEPHCDU 20:20 → N05 03-28 06:37
PROVIDERS: ADMIT Hospitalist; ATTEND Hospitalist